=== PATIENT | female | born 1985 | race Caucasian/White ===

== ENCOUNTER 2018-03-12 23:00 | Emergency (ER) | payer SELFPAY ==
[2018-03-12] MEDS: CYCLOBENZAPRINE HCL 5 MG TABLET PO ONE (23:40)
[2018-03-12] MEDS: KETOROLAC TROMETHAMINE 60 MG/2 ML VIAL IM ONE (23:40)
--- NOTE | 2018-03-13 00:51 | ED Physician Documentation ---
Lower Extremity Injury - HISTORIAN Historian: patient - HPI Stated Complaint: rt knee pain Chief Complaint: Lower Extremity Injury Additional Information: climbing a step and heard a pop, immediate pain Onset: days ago (2) Where: home Severity: moderate Context: other (walking up stair) Associated Symptoms:: other (pain) Modifying Factors:: pain on movement - ROS CONST: no problems CVS/RESP: none GI/: denies: problems urinating, nausea, vomiting MS/SKIN/LYMPH: none NEURO: denies: headache, head injury, anxiety, depression - PAST HX Past History: none Immunizations: referred to PCP Allergies/Adverse Reactions: Allergies Allergy/AdvReac Type Severity Reaction Status Date / Time No Known Allergies Allergy Verified 05/21/16 22:15 Home Medications: Ambulatory Orders Medication Instructions Recorded NK [NK] 05/21/16 - SOCIAL HX Smoking History: non-smoker Alcohol Use: none Drug Use: none - FAMILY HX Family History: no significant history - VITAL SIGNS Vital Signs: Vital Signs Temp Pulse Resp BP Pulse Ox 98.3 F 104 H 18 128/87 98 03/12/18 23:03 03/12/18 23:03 03/12/18 23:03 03/12/18 23:03 03/12/18 23:03 - REVIEWED ASSESSMENTS Nursing Assessment Reviewed: Yes Vitals Reviewed: Yes Progress - Results/Orders Results/Orders: ct right knee ordered - Progress Progress: pt given 60 mg toradol im and 10 mg flexeril p.o. in er with improvement in pain , placed in long leg immobilizer Critical Care Note - Critical Care Note Total Time (mins): 0 ED Results Lab/Radiology - Lab Results Lab Results: none ordered - Radiology Radiology Impressions: ct knee unremarkable - Orders Orders: ED Orders Category Date Time Status Ice to affected area [Apply ice to affected area] Q1-2 Care 03/12/18 23:31 Active Long Leg Splint 1T Care 03/13/18 00:[address] LEG W/O CONTRAST Stat Exams 03/12/18 Ordered Cyclobenzaprine HCl [Flexeril] Med 03/12/18 23:30 Discontinued 10 mg PO NOW ONE Ketorolac Tromethamine [Toradol] Med 03/12/18 23:30 Discontinued 60 mg IM NOW ONE Lower Extremities Injury Phy - Physical Exam General Appearance: moderate distress Hips: right hip: non-tender, normal inspection, normal range of motion, no evidence of injury Legs: right: non-tender, normal inspection, normal range of motion, no evidence of injury Knees: right: normal range of motion, bone tenderness (right lateral knee), joint effusion (right knee, minor), pain (with rom right knee), N/A: deformity ( no deformity) Ankle: right: non-tender, normal inspection, normal range of motion, no evidence of injury Foot: right foot: non-tender, normal inspection, normal range of motion, no evidence of injury DTR - Lower Extremities: knee (R): 2+, knee (L): 2+, ankle (R): 2+, ankle (L): 2 + Ligaments: pain on anterior drawer, pain on posterior drawer, pain on medial stress, pain on lateral stress. No: laxity on anterior drawer, laxity on posterior drawe, laxity on medial stress, laxity on lateral stress Gait: limited by pain Neuro/Vascular/Tendon: no vascular compromise, motor nml, sensation nml Head/ENT: nml inspection, pharynx nml Neck/Back: nml inspection, non-tender Resp/CVS: chest non-tender, breath sounds nml, heart sounds nml, no resp. distress, lungs clear, reg. rate & rhythm Discharge Clincal Impression: Right knee sprain Qualifiers: Encounter type: initial encounter Involved ligament of knee: lateral collateral ligament Qualified Code(s): S83.421A - Sprain of lateral collateral ligament of right knee, initial encounter Referrals: Primary Doctor,No [Primary Care Provider] - 2 Days Comments: Discharged in stable and improved condition to care of significant other with scripts for Flexeril 10 mg #14 1 p.o. bid and Meloxicam 1 pill three times daily #21 Condition: Stable Disposition: 01 HOME, SELF-CARE Decision to Admit: NO Decision Time: 00:57
[2018-03-13 01:12] VITALS: BP 129/85
--- NOTE | 2018-03-13 01:14 | Diagnostic Imaging Report ---
LUIS MANUEL BENJAMIN [facility] [address] [facility] [address] 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 Findings: Visualized femur, patella, fibula and tibia are intact. There is a joint effusion present. There is no lytic or blastic lesion. Subcutaneous soft tissues are within normal limits. There is no evident erosion. Impression: 1. Joint effusion. 2. No fracture. Electronically signed on March 13, 2018 12:20:46 AM CDT by: Bill WINKLRE
== END 2018-03-13 00:57 | disposition home or self-care (01) ==
LOC: ED 23:00
DX: S83.421A Sprain of lateral collateral ligament of right knee, initial encounter (principal); Y93.01 Activity, walking, marching and hiking
CPT/HCPCS: 73700; J1885; L1830; 96372; 99284